=== PATIENT | female | born 2000 | race Caucasian/White ===

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

== ENCOUNTER 2024-02-24 17:46 | Emergency (ER) | payer MEDICAID ==
[2024-02-24] MEDS: diphenhydrAMINE 25 MG Cap PO ONE (18:15)
== END 2024-02-24 18:50 | disposition home or self-care (01) ==
LOC: JP.ED 17:46
DX: F41.0 Panic disorder [episodic paroxysmal anxiety] (principal); Z79.899 Other long term (current) drug therapy
CPT/HCPCS: 99283; A9270; 99284